=== PATIENT | male | born 1945 | race Caucasian/White ===

== ENCOUNTER 2020-06-01 13:44 | Emergency (ER) | payer MEDICARE, SELFPAY ==
[2020-06-01 13:45] VITALS: BP 219/88; PULSE 68; RESP 18; TEMP 36.6; O2SAT 97; BMI 20.3
--- NOTE | 2020-06-01 14:55 | CM.ED ---
SOCIAL WORK Informant: Dr. Franco Reason for Consult: Financial Resources Met with patient and [place] manning in room. Introduced role and reason for referral. Patient gave permission for this worker to speak openly with niece present. Patient discussed financial stressors and worried about medical bills for ER visit. Niece reports patient applied for Medicaid 2 years ago and was denied. Discussed current financial situation. Patient provided with contact number for [employer] Benefits line. [facility] states will assist patient in re-applying. Educated patient on payment plan for any medical bills not covered by Medicare. Patient states, I don't want anything that I'm going to have to pay for. I have a limited income. Updated Dr. Franco on the above. Will remain available for any further needs. Troy Pedraza, TRAVELING REPAIR ACCOUNTANT, CLINICAL EVALUATOR
[2020-06-01 15:00] VITALS: BP 213/128
--- NOTE | 2020-06-01 15:07 | EKG12_ITS ---
Test Reason : Blood Pressure : / mmHG Vent. Rate : 076 BPM Atrial Rate : 076 BPM P-R Int : 000 ms QRS Dur : 116 ms QT Int : 428 ms P-R-T Axes : 000 -67 071 degrees QTc Int : 481 ms Atrial fibrillation with premature ventricular or aberrantly conducted complexes Left anterior fascicular block Left ventricular hypertrophy with QRS widening Anterior infarct , age undetermined Abnormal ECG Confirmed by NICOLÁS JADE, JOSE ALBERTO ([id number]), electronic news gathering editor DARRELL POWERS ([id number]) on 06/06/2020 11:06:08 AM Referred By: ARABELLA Confirmed By:JOSE ALBERTO MONZON MD
--- NOTE | 2020-06-01 15:07 | ED.RN ---
pt states that he does not have the funds for medical bills. social scientist at bedside speaking with pt regarding applying for susan.
[2020-06-01 15:34] VITALS: BP 184/98; PULSE 74; RESP 18; O2SAT 97
[2020-06-01] MEDS: Labetalol 20 MG/4 ML Vial IV (15:35)
[2020-06-01 15:38] VITALS: BP 151/74; PULSE 67; RESP 17; O2SAT 95
[2020-06-01 15:48] LABS: Absolute Lymphocyte Count 1.61 X10^3/uL (0.83-4.51); Basophil# 0.04 X10^3/uL; Basophil% 0.6 % (0-1); Eosinophil# 0.19 X10^3/uL; Eosinophils% 2.9 % (0-5); Hematocrit 48.7 % (40-54); Hemoglobin 16.2 g/dL (13.0-16.5); Lymphocyte # 1.61 X10^3/ul (4.0); Lymphocyte % 24.6 % (19-41); Mean Corp Hgb Conc 33.3 g/dL (32-36); Mean Corpuscular Hgb 30.8 pg (27.0-32.0); Mean Corpuscular Volume 92.6 fL (80-94); Mean Platelet Vol. 9.4 fl (6.2-12.0); Monocyte# 0.72 X10^3/uL; NRBC Flagged by Analyzer 0 % (0-5); Neutrophil # 3.95 X10^3/uL (2.7-7.7); Neutrophil % 60.4 % (47-70); Platelet Count 222 K/mm3 (150-450); RBC Distribution Width CV 13.8 % (11.6-14.6); RBC Distribution Width SD 46.7 fl (35.1-43.9); Red Blood Count 5.26 M/mm3 (4.6-6.2); White Blood Count 6.5 K/mm3 (4.4-11.0)
[2020-06-01 16:03] LABS: Anion Gap 3 (5-15); BUN 10 mg/dL (7-18); BUN/Creat Ratio 11.1 RATIO (10-20); Calcium,Total 9.1 mg/dL (8.5-10.1); Chloride 110 mmol/L (98-107); EST Glomerular Filtration Rate 87 mL/min (>60); Est Glom Filt Rate - Afr Amer 105 mL/min (>60); Estimated Creatinine Clearance 60.86 ml/min; Glucose 97 mg/dL (74-106); Potassium 3.7 mmol/L (3.5-5.1); Sodium Level 143 mmol/L (136-145); Thyroid Stim Hormone (TSH) 3.73 uIU/mL (0.358-3.74)
--- NOTE | 2020-06-01 16:12 | ED.DCSUM_ITS ---
- ER Visit Summary Date of Service: 06/01/20 Chief Complaint: High blood pressure History of Present Illness: The patient is a 75 M with no primary care physician. He reports that he was at [facility] doing preop clearance when they found that his blood pressure was high today. He it was 214/112 in the office. He states he does not have a history of hypertension. However, he has not seen a doctor in years. Review of systems: General: No fever, chills, cold sweats. Cardiovascular: No chest pain, palpitations. Respiratory: No cough, shortness of breath, dyspnea on exertion. Gastrointestinal: No abdominal pain, nausea, vomiting, diarrhea, melena, or hematochezia. Genitourinary: No dysuria, frequency, hematuria. Skin: No rash. Neuro: No headache, numbness, weakness. Physical Examination: Vitals: Stable. Afebrile. General: Well-nourished and well-developed. Head: Normocephalic atraumatic. Neck: Supple, no lymphadenopathy. No JVD. Nontender. Cardiovascular: Regular rate and rhythm. No murmurs. Respiratory: No respiratory distress. Clear to auscultation bilaterally. Abdominal: Soft, nontender, nondistended, normal bowel sounds. No guarding, rebound, or peritoneal signs. Back: Nontender. Extremities: Nontender, no edema. Skin: Normal color, no rash. Neurologic: Alert and oriented ?3. Cranial nerves II through XII are intact. Normal strength and sensation. Psych: Normal affect. Test Results: EKG is sinus at [address]pecific [address] changes. There is significant LVH. CBC shows monocytes of 11. Chem-7 shows a chloride of 110. Troponin is 0.036. TSH is 3.73. Emergency Department Course and Treatment: Patient was given a dose of labetalol IV. Blood pressure has decreased to 151/73. He is resting comfortably. Patient is adamant that he is having no symptoms and wants to go home. Treatment Plan: Had a prolonged discussion with him that he needs to be on medications for his blood pressure and follow-up with a primary care physician. He understands this. He responded well to the labetalol. He will be discharged on 25 mg of Lopressor twice daily. Instructed to follow-up with Dr. Dominic Martinez or the [facility] in 1 week to get his blood pressure checked again. Return to the emergency department for any worsening symptoms. Disposition: To home in improved and stable condition. Impression: 1 1. Hypertension. This note was generated with [employer] dictation software. It may contain incorrect words, spelling, and punctuation that were not noted in review of the chart prior to signing ED Disposition - Plan for ED Patient: Disposition: Home or Assisted Living Instructions: ED Hypertension New Begin Treatment Prescriptions: Metoprolol Tartrate 25 mg PO BID #60 tab Prescription Printed Referrals: Violeta Louise [NON-STAFF] - 1 Week Dominic Martinez MD [STAFF PHYSICIAN] - 1 Week
--- NOTE | 2020-06-01 16:15 | NURSING ---
NO OLD EKGS
[2020-06-01 16:29] VITALS: BP 173/98; PULSE 71; RESP 16; O2SAT 96
== END 2020-06-01 16:34 | disposition home or self-care (01) ==
LOC: ED 14:38
PROVIDERS: Emergency Provider Emergency Medicine
DX: I10 Essential (primary) hypertension (principal); F17.210 Nicotine dependence, cigarettes, uncomplicated
CPT/HCPCS: 80048; 84443; 84484; 85025; 93005; 96374; 99284; A4216